=== PATIENT | female | born 1955 | race Caucasian/White ===

== ENCOUNTER → 2016-11-14 | Outpatient (CLI) | payer OTHER | LOC: BMCIMAGING 13:40 | PROVIDERS: ATTEND Internal Medicine | DX: Z13.820 Encounter for screening for osteoporosis (principal); M85.80 Other specified disorders of bone density and structure, unspecified site; Z78.0 Asymptomatic menopausal state ==

== ENCOUNTER → 2017-01-27 | Outpatient (CLI) | payer OTHER | LOC: BMCIMAGING 14:54 | PROVIDERS: ATTEND Internal Medicine | DX: R10.31 Right lower quadrant pain (principal) ==

== ENCOUNTER 2017-05-10 17:08 | Emergency (ER) | payer OTHER ==
[2017-05-10] MEDS ORDERED: NS 1,000 ML IV ONE ×3 (17:40→18:32)
[2017-05-10] MEDS ORDERED: KETOROLAC 30 MG/1 ML SDV IVP ONE (18:13)
[2017-05-10 18:21] LABS: PLATELET COUNT 243 10^3/uL (150-400)
--- NOTE | 2017-05-10 18:39 | EDPHY ---
H & P Time Seen by Provider: 05/10/17 17:34 HPI/ROS: CHIEF COMPLAINT: Back pain, vomiting, diarrhea HISTORY OF PRESENT ILLNESS: The patient is a 62 y/o female presents with left flank pain. Onset of severe left flank pain 4 hrs ago. The pain is constant and waxes and wanes. Radiates to the LLQ. Unable to get comfortable. Associated with vomiting. She denies urinary sx, fever or other associated symptoms. No prior similar sx. REVIEW OF SYSTEMS: Constitutional: No fever, no chills Eyes: No visual changes ENT: No sore throat Respiratory: No cough, no shortness of breath Cardiac: No chest pain Genitourinary: No hematuria, no dysuria Musculoskeletal: No leg pain or swelling Skin: No rash Neurological: No headache Psychiatric: No depression Past Medical/Surgical History: 1. CAD 2. Psoriasis 3. Sjogren's disease Social History: at bedside, employed, lives in [place] Smoking Status: Never smoked Physical Exam: General Appearance: Alert, appears in pain Eyes: Pupils equal and round, no conjunctival pallor or injection ENT, Mouth: Mucous membranes moist Neck: Normal inspection Respiratory: Lungs are clear to auscultation Cardiovascular: Regular rate and rhythm Back: normal inspection, no CVAT or muscular tenderness Gastrointestinal: Left lower quadrant tenderness, abdomen is soft Neurological: A&O, nonfocal exam Skin: Warm and dry, no rash Extremities: normal inspection Psychiatric: Mood and affect normal Constitutional: Initial Vital Signs Temperature (C) 36.3 C 05/10/17 17:14 Heart Rate 62 05/10/17 17:14 Respiratory Rate 24 H 05/10/17 17:14 Blood Pressure 112/86 H 05/10/17 17:14 O2 Sat (%) 99 05/10/17 17:14 O2 Delivery Mode Room Air Allergies/Adverse Reactions: Sulfa (Sulfonamide Antibiotics) Allergy (Verified 05/10/17 17:13) Home Medications: Medication Instructions Recorded Aspirin 05/10/17 Fish Oil 1,000 mg Capsule 05/10/17 Levothyroxine 05/10/17 Otezla 05/10/17 Medical Decision Making - Diagnostics Imaging Results: CT abd/pelvis: left UVJ stone with hydronephrosis ED Course/Re-evaluation: Clnical presentation c/w renal colic. stat CT abd/pelvis ordered. Toradol 15mg IV given. CT reveals a distal left ureteral calculus. Results discussed with the patient and her . She is currently pain free. Abdomen is soft and nontender. Instructions for kidney stones given. She will follow up with her primary care physician. She will return to emergency department for worsening symptoms or any concerns. She declines a prescription for hydrocodone. Differential Diagnosis: Differential diagnosis includes though it is not limited to appendicitis, cholecystitis, diverticulitis, pyelonephritis, bowel perforation, small bowel obstruction. - Data Points Laboratory Results: Laboratory Results 05/10/17 17:35 05/10/17 17:35 Medications Given: Discontinued Medications Hydrocodone Bitart/Acetaminophen (Alborn 5/325mg Prepack#6) 1 btl TAKEHOME EDNOW ONE Stop: 05/10/17 19:07 Last Admin: 05/10/17 19:19 Dose: 1 btl Sodium Chloride (Ns) 1,000 mls @ 0 mls/hr IV ONCE ONE PRN Reason: Wide Open Stop: 05/10/17 17:41 Last Admin: 05/10/17 17:42 Dose: 1,000 mls Sodium Chloride (Ns) 1,000 mls @ 0 mls/hr IV EDNOW ONE; Wide Open PRN Reason: Protocol Stop: 05/10/17 18:14 Last Admin: 05/10/17 18:20 Dose: 1,000 mls Ketorolac Tromethamine (Toradol) 15 mg IVP EDNOW ONE Stop: 05/10/17 18:14 Last Admin: 05/10/17 18:18 Dose: 15 mg Ondansetron HCl (Zofran Odt 4 Mg Prepack#2) 1 btl TAKEHOME EDNOW ONE Stop: 05/10/17 19:07 Last Admin: 05/10/17 19:19 Dose: 1 btl Departure - Departure Disposition: Home, Routine, Self-Care Clinical Impression: Kidney stone Condition: Good Instructions: Hydrocodone/Acetaminophen (By mouth), Ondansetron (By mouth), Kidney Stones (ED) Additional Instructions: 1. Take 1 tablet of Alborn every 4 hours as needed for pain. Take 1 tablet Zofran every 6 hours as needed for nausea. 2. Follow-up with your primary care provider. 3. Return to the ED for worsening of condition. Referrals: Susan Bush MD [Primary Care Provider] - As per Instructions Report Scribed for: Sneha Bartholomew Report Scribed by: Ledy William Date of Report: 05/10/17 Time of Report: 18:42 Physician Review and Approval Statement: 05/10/17 18:42 Portions of this note were transcribed by a certified medical dosimetrist. I personally performed a history, physical exam, medical decision making, and confirmed accuracy of information the transcribed note.
[2017-05-10] MEDS ORDERED: ONDANSETRON 4MG PREPACK#2 BTL TAKEHOME ONE (19:06)
[2017-05-10] MEDS ORDERED: HYDROCOD/APAP 5/325 PREPACK#6 BTL TAKEHOME ONE (19:06)
[2017-05-10 19:17] VITALS: BP 126/74; PULSE 60; RESP 15; O2SAT 98
[2017-05-10 19:30] VITALS: TEMP 98.2
== END 2017-05-10 19:29 | disposition home or self-care (01) ==
DX: N20.0 Calculus of kidney (principal); I25.10 Atherosclerotic heart disease of native coronary artery without angina pectoris; E86.9 Volume depletion, unspecified; Z79.82 Long term (current) use of aspirin
CPT/HCPCS: 96374; J1885

== ENCOUNTER → 2017-05-25 | Outpatient (CLI) | payer OTHER | LOC: BMCIMAGING 13:30 | PROVIDERS: ATTEND Internal Medicine | DX: Z12.31 Encounter for screening mammogram for malignant neoplasm of breast (principal) ==

== ENCOUNTER → 2017-09-01 | Outpatient (CLI) | payer OTHER ==
[~2017-09-01] MED LIST: IOPAMIDOL (ISOVUE-300) 100 ML BTL ONE
== END ==
LOC: FIMAGING 13:11
PROVIDERS: ATTEND Internal Medicine
DX: K76.9 Liver disease, unspecified (principal); N20.0 Calculus of kidney
CPT/HCPCS: Q9967

== ENCOUNTER 2018-01-25 17:42 | Emergency (ER) | payer OTHER ==
--- NOTE | 2018-01-25 18:32 | EDPHY ---
H & P Stated Complaint: Right flank pain Time Seen by Provider: 01/25/18 18:31 - Personal History Current Tetanus/Diphtheria Vaccine: Yes - Medical/Surgical History Hx Asthma: No Hx Chronic Respiratory Disease: No Hx Diabetes: No Hx Cardiac Disease: Yes Hx Renal Disease: No Hx Cirrhosis: No Hx Alcoholism: No Hx HIV/AIDS: No Hx Splenectomy or Spleen Trauma: No Other PMH: sjogren's syndrome, CHF, lupus, hypothyroid - Social History Smoking Status: Never smoked Constitutional: Initial Vital Signs Temperature (C) 36.4 C 01/25/18 17:44 Heart Rate 66 01/25/18 17:44 Respiratory Rate 25 H 01/25/18 17:44 Blood Pressure 151/104 H 01/25/18 17:44 O2 Sat (%) 100 01/25/18 17:44 O2 Delivery Mode Room Air Allergies/Adverse Reactions: Sulfa (Sulfonamide Antibiotics) Allergy (Verified 01/25/18 17:45) Home Medications: Medication Instructions Recorded Aspirin 05/10/17 Fish Oil 1,000 mg Capsule 05/10/17 Levothyroxine 05/10/17 Otezla 05/10/17 HYDROcodone/APAP 10/325 [Mammoth 1 - 2 each PO Q4-6PRN PRN #20 tab 01/25/18 10/325] Ondansetron Odt [Zofran Odt 4 mg 4 mg PO Q4 PRN #10 tab 01/25/18 (RX)] Tamsulosin HCl [Flomax] 0.4 mg PO DAILY #10 capsule 01/25/18 Medical Decision Making - Diagnostics Imaging: Discussed imaging studies w/ call center recruiter Radiologist ED Course/Re-evaluation: CHIEF COMPLAINT: Right flank pain HISTORY OF PRESENT ILLNESS: 63-year-old female who a few hours ago developed severe right flank pain radiating to her right groin. She had a history kidney stones in the past and this feels exactly the same. Her prior kidney stones on the left side. She is nauseated and vomited in triage. She denies any fevers or chills. She denies any symptoms before this came on very suddenly. She is writhing around on the bed and she cannot get comfortable. REVIEW OF SYSTEMS: A comprehensive 10 system review of systems is otherwise negative aside from elements mentioned in the history of present illness and medical decision making. PHYSICAL EXAM: HR, BP, O2 Sat, RR. Temp noted General Appearance: Alert, well hydrated, appropriate, and non-toxic appearing. Head: Atraumatic without scalp tenderness or obvious injury Eyes: Pupils equal, round, reactive to light and accommodation, EOMI, no trauma , no injection. Ears: Clear bilaterally, no perforation, normal landmarks Nose: Atraumatic, no rhinorrhea, clear. Throat: There is no erythema or exudates, no lesions, normal tonsils, mucus membranes moist. Neck: Supple, nontender, no lymphadenopathy. Respiratory: No retractions, no distress, no wheezes, and no accessory muscle use. Lungs are clear to auscultation bilaterally. Cardiovascular: Regular rate and rhythm, no murmurs, rubs, or gallops. Bilateral carotid, radial, dorsalis pedis, and posterior tibial pulses intact. Good capillary refill all extremities. Gastrointestinal: Patient has pain in the right flank and the right pericolic gutter and right lower quadrant but I cannot actually make the pain any worse with palpation. Abdomen is soft, non-distended, no masses, no rebound, no guarding, no peritoneal signs. Musculoskeletal: Normal active ROM of all extremities, atraumatic. Neurological: Alert, appropriate, and interactive. Nonfocal neuro exam. Skin: No rashes, good turgor, no nodules on palpation. Past medical history: Kidney stones, liver lesion being watched, immune problems Past surgical history: Noncontributory Family history: Noncontributory Social history: , employed, does not abuse tobacco drugs or alcohol DIAGNOSTICS/PROCEDURES/CRITICAL CARE TIME: Study: CT of the abdomen and pelvis without contrast Indication: Right flank pain Results: CT scan of the abdomen and pelvis was obtained. The results of the study are 3mm renal calculus in distal R UVJ. The study was read by the radiologist, Dr. Johns. I viewed the images myself on the PACS system. DIFFERENTIAL DIAGNOSIS: The differential diagnosis for the patient's flank pain included but was not limited to musculoskeletal causes, kidney stone, pyelonephritis, shingles, diverticulitis, appendicitis, and aortic aneurysm. MEDICAL DECISION MAKING: This patient has a kidney stone clinically. I am awaiting urine and blood work. Also a noncontrast CT scan. Additionally, I have given this patient 1 mg of Dilaudid and 30 mg of Ketoralac. She has also received 4 mg of Zofran and fluid she is feeling better. 19:[address] Johns, radiologist. CT shows 3mm calculus in the distal right UVJ. 19:58 Reassessed patient. Discussed imaging results. Plan to discharge home in good condition with prescription for Zofran, Mammoth, Flomax for symptom relief as well as a referral to urology. Return precautions discussed. She is comfortable with this plan. - Data Points Laboratory Results: 01/25/18 01/25/18 19:03 18:40 POC Hgb 15.6 gm/dL gm/dL (12.6-16.3) POC Hct 46 % % (38-47) POC Sodium 142 mEq/L mEq/L (135-145) POC Potassium 3.2 mEq/L L mEq/L (3.3-5.0) POC Chloride 103 mEq/L mEq/L (97-110) POC BUN 17 mg/dL mg/dL (7-23) POC Creatinine 1.1 mg/dL H mg/dL (0.6-1.0) POC Glucose 111 mg/dL H mg/dL (70-100) Urine Color YELLOW Urine Appearance HAZY Urine pH 5.0 (5.0-7.5) Ur Specific [place] 1.021 (1.002-1.030) Urine Protein NEGATIVE (NEGATIVE) Urine Ketones NEGATIVE (NEGATIVE) Urine Blood 3+ H (NEGATIVE) Urine Nitrate NEGATIVE (NEGATIVE) Urine Bilirubin NEGATIVE (NEGATIVE) Urine Urobilinogen NEGATIVE EU EU (0.2-1.0) Ur Leukocyte Esterase NEGATIVE (NEGATIVE) Urine RBC 50-182 /hpf H /hpf (0-3) Urine WBC 1-3 /hpf /hpf (0-3) Ur Epithelial Cells TRACE /lpf /lpf (NONE-1+) Amorphous Sediment PRESENT /hpf /hpf (NONE-1+) Urine Mucus 1+ /lpf /lpf (NONE-1+) Urine Glucose NEGATIVE (NEGATIVE) Medications Given: Discontinued Medications Hydromorphone HCl (Dilaudid) 1 mg IVP EDNOW ONE Stop: 01/25/18 18:41 Last Admin: 01/25/18 18:48 Dose: 1 mg Sodium Chloride (Ns) 1,000 mls @ 0 mls/hr IV EDNOW ONE; Wide Open PRN Reason: Protocol Stop: 01/25/18 18:42 Last Admin: 01/25/18 18:50 Dose: 1,000 mls Ketorolac Tromethamine (Toradol) 30 mg IVP EDNOW ONE Stop: 01/25/18 18:51 Last Admin: 01/25/18 18:51 Dose: 30 mg Ondansetron HCl (Zofran) 4 mg IVP EDNOW ONE Stop: 01/25/18 18:50 Last Admin: 01/25/18 18:54 Dose: 4 mg Point of Care Test Results: Chemistry 01/25/18 19:03 POC Sodium 142 mEq/L mEq/L (135-145) POC Potassium 3.2 mEq/L L mEq/L (3.3-5.0) POC Chloride 103 mEq/L mEq/L (97-110) POC BUN 17 mg/dL mg/dL (7-23) POC Creatinine 1.1 mg/dL H mg/dL (0.6-1.0) POC Glucose 111 mg/dL H mg/dL (70-100) ISTAT H&H 01/25/18 19:03 POC Hgb 15.6 gm/dL gm/dL (12.6-16.3) POC Hct 46 % % (38-47) Departure - Departure Disposition: Home, Routine, Self-Care Clinical Impression: Right kidney stone Condition: Good Instructions: Kidney Stones (ED) Additional Instructions: Follow up with your urologist within one week. Take Zofran as prescribed as needed for nausea. Take Flomax as prescribed. Take Mammoth as prescribed as needed for severe pain. Return to the emergency department for fever, severe pain, inability to urinate or other concerns. Adult Pain & Fever Control: We recommend Acetaminophen (Tylenol) and Ibuprofen (Motrin,Advil) for pain and fever control. When fever is high or pain severe, both drugs can be used at the same time, but at different intervals. Please note the time differences. Your dose is: Acetaminophen 650mg every 4 to 6 hours Ibuprofen 600mg every 6-8 hours with food Note: do not take Acetaminophen with Hydrocodone (Vicodin, Lortab) or Oxycodone (Percocet). These medications also contain Acetaminophen. No more than 3000mg of Acetaminophen should be taken in 24 hours (for an adult). Referrals: Susan Bush MD [Primary Care Provider] - As per Instructions Opal London MD [Medical Doctor] - As per Instructions Prescriptions: HYDROcodone/APAP [Mammoth ] 1 - 2 each PO Q4-6PRN PRN #20 tab PRN Reason: Pain, Moderate Ondansetron Odt [Zofran Odt 4 mg (RX)] 4 mg PO Q4 PRN #10 tab PRN Reason: Nausea/Vomiting, Use 1st Tamsulosin HCl [Flomax] 0.4 mg PO DAILY #10 capsule Report Scribed for: Gt Christianson Report Scribed by: Latisha Banegas Date of Report: 01/25/18 Time of Report: 19:57
[2018-01-25] MEDS ORDERED: HYDROmorphONE/DILAUDID 2 MG/ML INJ IVP ONE (18:40)
[2018-01-25] MEDS ORDERED: NS 1,000 ML IV ONE (18:41)
[2018-01-25] MEDS ORDERED: ONDANSETRON 4 MG/2 ML VIAL IVP ONE (18:49)
[2018-01-25] MEDS ORDERED: KETOROLAC 30 MG/1 ML SDV IVP ONE (18:50)
[2018-01-25] MEDS ORDERED: TAMSULOSIN HCL 0.4 MG CAP PO ONE (19:52)
[2018-01-25] MEDS ORDERED: HYDROCOD/APAP 5/325 PREPACK#6 BTL TAKEHOME ONE (20:01)
[2018-01-25] MEDS ORDERED: ONDANSETRON 4MG PREPACK#2 BTL TAKEHOME ONE (20:01)
[2018-01-25 20:45] VITALS: BP 138/70
== END 2018-01-25 20:45 | disposition home or self-care (01) ==
DX: N20.1 Calculus of ureter (principal); N20.0 Calculus of kidney; E86.9 Volume depletion, unspecified; Z87.442 Personal history of urinary calculi
CPT/HCPCS: 82435-PO; 82565-PO; 82947-PO; 84132-PO; 84295-PO; 84520-PO; 85014-PO; 96374; J1170; J1885; J2405

== ENCOUNTER → 2018-05-07 | Outpatient (CLI) | payer OTHER | LOC: BMCIMAGING 16:10 | PROVIDERS: ATTEND Internal Medicine | DX: M41.86 Other forms of scoliosis, lumbar region (principal); M51.36 Other intervertebral disc degeneration, lumbar region; M51.37 Other intervertebral disc degeneration, lumbosacral region; M47.26 Other spondylosis with radiculopathy, lumbar region ==

== ENCOUNTER → 2018-05-29 | Outpatient (CLI) | payer OTHER | LOC: BMCIMAGING 15:02 | PROVIDERS: ATTEND Internal Medicine | DX: Z12.31 Encounter for screening mammogram for malignant neoplasm of breast (principal) ==

== ENCOUNTER → 2018-08-01 | Outpatient (CLI) | payer OTHER | LOC: BMCIMAGING 10:42 | PROVIDERS: ATTEND Internal Medicine | DX: Z01.811 Encounter for preprocedural respiratory examination (principal) ==

== ENCOUNTER 2018-09-04 05:46 | Inpatient (IN) | payer OTHER ==
[2018-09-04] MEDS ORDERED: ACETAMINOPHEN 500 MG TAB PO ONE (06:04)
[2018-09-04] MEDS ORDERED: ceFAZolin 2 GM/DEXTROSE 100 ML IV ONE (06:04)
[2018-09-04] MEDS ORDERED: morphINE PF 0.2 MG in SYRINGE INTRATHECAL 1 SYR IT ONE (06:04)
[2018-09-04] MEDS ORDERED: GABAPENTIN 300 MG CAP PO ONE (06:04)
[2018-09-04] MEDS ORDERED: LR 1,000 ML IV ONE (06:06)
--- NOTE | 2018-09-04 06:53 | PDHPUP ---
History & Physical Update H&P update statement: This history and physical update is based on an assessment of the patient which was completed after admission or registration (within 24 hours), but prior to the surgery/procedure. H&P update: H&P reviewed & patient examined, no change in patient's condition since H&P completed (Consents signed and site marked. All questions answered.)
[2018-09-04] MEDS ORDERED: SURGIFLO MATRIX KIT WITH THROMBIN 8 ML TP ONE (06:56)
[2018-09-04] MEDS ORDERED: BUPIVACAINE/EPI 0.25% 30 ML SDV ONE (06:56)
[2018-09-04] MEDS ORDERED: THROMBIN (BOVINE) 20,000 UNIT VIAL TP ONE (06:56)
[2018-09-04] MEDS ORDERED: BACITRACIN 50,000 UNITS/10 ML SYR IRR ONE (06:56)
[2018-09-04] MEDS ORDERED: CHLORHEXIDINE GLUC HIBICLENS 118 ML BTL TP ONE (06:56)
[2018-09-04] MEDS ORDERED: MIDAZOLAM 2 MG/2 ML VIAL IVP ONE (07:02)
--- NOTE | 2018-09-04 07:02 | PDANEPAE ---
ANE History of Present Illness L4-S1 TLIF Lum Calzada for stenosis of the lumbar spine with radiculopathy ANE Past Medical History - Cardiovascular History Hx Hypertension: No Hx Arrhythmias: No Hx Chest Pain: No Hx Coronary Artery / Peripheral Vascular Disease: Yes Hx CHF / Valvular Disease: No Hx Palpitations: No - Pulmonary History Hx COPD: No Hx Asthma/Reactive Airway Disease: No Hx Recent Upper Respiratory Infection: No Hx Oxygen in Use at Home: No Hx Sleep Apnea: Yes Sleep Apnea Screening Result - Last Documented: Positive - Neurologic History Hx Cerebrovascular Accident: No Hx Seizures: No Hx Dementia: No - Endocrine History Hx Diabetes: No Endocrine History Comment: HYPOTHYROID - Renal History Hx Renal Disorders: Yes Renal History Comment: KIDNEY STONES PASSED ON HER OWN - Liver History Hx Hepatic Disorders: Yes Hepatic History Comment: SPOT ON LIVER - Neurological & Psychiatric Hx Hx Neurological and Psychiatric Disorders: No - Cancer History Hx Cancer: No - Congenital Disorder History Hx Congenital Disorders: No - GI History Hx Gastrointestinal Disorders: Yes Gastrointestinal History Comment: FOOD INTOLERANCES. SJOGRENS - Other Health History Other Health History: PSORIASIS. SORIATIC ARTHRITIS. SJOGRENS. LUPUS ANTIBODIES. RESTLESS LEG. SCOLOSIS - Chronic Pain History Chronic Pain: Yes (LOWER LUMBAR,SCIATICA) - Surgical History Prior Surgeries: LT BUNIONECTOMY 2016 ANE Review of Systems Review of Systems: - Exercise capacity METS (RN): 4 METS ANE Patient History - Allergies Allergies/Adverse Reactions: gluten Allergy (Verified 08/21/18 16:02) Diarrhea Milk Containing Products [dairy] Allergy (Verified 08/21/18 16:02) Diarrhea soy Allergy (Verified 08/21/18 16:02) Diarrhea Sulfa (Sulfonamide Antibiotics) Allergy (Verified 07/11/18 11:31) Swelling/neck,face,throat - Home Medications Home Medications: Apremilast [Otezla] 30 mg PO BID 07/11/18 [Last Taken 08/31/18] Aspirin [Aspirin 81mg (*)] 81 mg PO DAILY 07/11/18 [Last Taken 2 Weeks Ago ~07/10] Cholecalciferol Vit D3 [Vitamin D3 (*)] 1,000 units PO DAILY 07/11/18 [Last Taken 1 Week Ago ~08/28/18] Cyanocobalamin [Vitamin B12 (*)] 1,000 mcg PO DAILY 07/11/18 [Last Taken 1 Week Ago ~08/28/18] Evolocumab [Repatha Sureclick] 140 mg SQ Q14D 07/11/18 [Last Taken 2 Weeks Ago ~ 08/21/18] Levothyroxine [Synthroid 88 mcg (*)] 88 mcg PO DAILY06 08/20/18 [Last Taken ] - NPO status NPO Since - Liquids (Date): 09/03/18 NPO Since - Liquids (Time): 19:30 NPO Since - Solids (Date): 09/03/18 NPO Since - Solids (Time): 19:30 - Smoking Hx Smoking Status: Never smoked - Family Anes Hx Family Hx Anesthesia Complications: NEG ANE Labs/Vital Signs - Vital Signs Blood Pressure: 149/83 Heart Rate: 80 Respiratory Rate: 16 O2 Sat (%): 95 Height: 172.09 cm Weight: 68.039 kg ANE Physical Exam - Airway Neck exam: FROM Mallampati Score: Class 2 Mouth exam: normal dental/mouth exam - Pulmonary Pulmonary: no respiratory distress, no rales or rhonchi - Cardiovascular Cardiovascular: regular rate and rhythym, no murmur, rub, or gallop - ASA Status ASA Status: III ANE Anesthesia Plan Anesthesia Plan: general endotracheal anesthesia Total IV Anesthesia: Yes
[2018-09-04] MEDS ORDERED: MIDAZOLAM 2 MG/2 ML VIAL ONE (07:03)
[2018-09-04] MEDS ORDERED: PROPOFOL 200 MG/20 ML VIAL ONE (07:06)
[2018-09-04] MEDS ORDERED: DEXAMETHASONE 4 MG/ML VIAL ONE (07:06)
[2018-09-04] MEDS ORDERED: PHENYLEPHRINE HCL 100 MCG/ML SYR ONE (07:06)
[2018-09-04] MEDS ORDERED: PROPOFOL/EMULSION 500 MG/50 ML BOTTLE IV ONE ×4 (07:06→08:25)
[2018-09-04] MEDS ORDERED: ONDANSETRON 4 MG/2 ML VIAL ONE (07:06)
[2018-09-04] MEDS ORDERED: REMIFENTANIL HCL 1 MG VIAL ONE ×2 (07:06)
[2018-09-04] MEDS ORDERED: LIDOCAINE 2% 100 MG/5 ML SYR ONE (07:06)
[2018-09-04] MEDS ORDERED: ROCURONIUM 50 MG/5 ML VIAL ONE (07:06)
[2018-09-04] MEDS ORDERED: PHENYLEPHRINE 10 MG/ML SDV ONE (07:06)
[2018-09-04] MEDS ORDERED: diphenhydrAMINE 25 MG CAP PO PRN (07:38)
[2018-09-04] MEDS ORDERED: ONDANSETRON DISINTEGRATING 4 MG TAB PO PRN (07:38)
[2018-09-04] MEDS ORDERED: LACTULOSE 20 GM/30 ML UDCUP PO PRN (07:38)
[2018-09-04] MEDS ORDERED: POLYETHYLENE GLYCOL 3350 17 GM PKT PO PRN (07:38)
[2018-09-04] MEDS ORDERED: MAGNESIUM HYDROXIDE 30 ML UDCUP PO PRN (07:38)
[2018-09-04] MEDS ORDERED: BISACODYL 10 MG SUPP PR PRN (07:38)
[2018-09-04] MEDS ORDERED: ONDANSETRON 4 MG/2 ML VIAL IVP PRN (07:38)
[2018-09-04] MEDS ORDERED: NS 1,000 ML IV SCH (07:45)
--- NOTE | 2018-09-04 09:34 | PDMN ---
Medical Necessity Medical necessity: [facility] [place] S820 Lumbar Fusion, 2 days: 63 yo s/p L4/L5/S1 TLIF Lum Calzada, L4-S1 post fusion w/ TRINO munoz IP only
[2018-09-04] MEDS ORDERED: PHENYLEPHRINE HCL 100 MCG/ML SYR IVP PRN (10:48)
[2018-09-04] MEDS ORDERED: DIAZEPAM 5 MG/ML 1 ML SYR IVP PRN (10:48)
[2018-09-04] MEDS ORDERED: NALOXONE HCL 0.4 MG/ML INJ IVP PRN ×2 (10:48→12:09)
[2018-09-04] MEDS ORDERED: HYDROmorphONE/DILAUDID 1 MG/ML INJ IVP PRN (10:48)
[2018-09-04] MEDS ORDERED: MEPERIDINE 25 MG/0.5 ML AMP IVP PRN (10:48)
[2018-09-04] MEDS ORDERED: fentaNYL 100 MCG/2 ML INJ IVP PRN (10:48)
[2018-09-04] MEDS ORDERED: HYDROmorphONE/DILAUDID 2 MG/ML INJ ONE (10:59)
--- NOTE | 2018-09-04 11:37 | POSTANESTH ---
Post Anesthetic Evaluation Cardiovascular Status: Normal, Stable, Tx Over/Under Hydration Level of Consciousness/Mental Status: Can Participate in Eval, Moderately Sleepy Pain Control: Adequate, Prn Tx Ordered Nausea/Vomiting Control: Adequate, Prn Tx Ordered Complications Possibly Related to Anesthesia: None Noted
--- NOTE | 2018-09-04 12:04 | POSTOPPROG ---
Post Op Note Date of Operation: 09/04/18 Surgeon: Keagan Baldwin Supervisor Tree Trimming: Keke Frost NP Anesthesiologist: Dr Cruz Anesthesia: GET(General Endotracheal) Pre-op Diagnosis: Lumbar stenosis Post-op Diagnosis: Lumbar stenosis Procedure: L4-S1 laminectomy with left L4-S1 TLIF, L4-S1 PSF Inf/Abcess present in the surg proc area at time of surgery?: No Depth: Deep Incisional (Fascial) EBL: 100-500 Total fluids administered: see anesthesia Complications: none Bowel Protocol: Yes Clean Closure Performed: N/A Drains: Mil Wang Date of Surgery: 09/04/18 Post Op Day: 0 Assessment/Plan: Assessment: 63 yr old F s/p L4-S1 laminectomy with left L4-S1 TLIF, PSF L4-S1 Plan: -Admit Med surg -Pain management, patient received IT Duramorph -PT/OT -KASEY to bulb suction -Brace on when out of bed -Post op xrays in am -Please call neurosurgery with questions or concerns Subjective: waking up in pacu Objective: waking up in pacu MAEx4 5/5 BLE Incision/dressing CDI KASEY patent Appropriate Neuro Check Frequency Ordered: Yes
[2018-09-04] MEDS: ACETAMINOPHEN 500 MG TAB PO SCH ×2 (13:03→22:01)
[2018-09-04] MEDS: GABAPENTIN 300 MG CAP PO SCH ×2 (13:03→22:01)
[2018-09-04] MEDS: METHOCARBAMOL 750 MG TAB PO PRN ×2 (14:03→20:02)
[2018-09-04] MEDS: oxyCODONE IR 5 MG TAB PO PRN ×2 (14:03→22:01)
[2018-09-04] MEDS: FAMOTIDINE 20 MG TAB PO SCH ×2 (14:35→20:02)
[2018-09-04] MEDS: SENNOSIDES/DOCUSATE SODIUM TAB PO SCH ×2 (14:35→20:02)
[2018-09-04] MEDS: ceFAZolin 2 GM/DEXTROSE 100 ML IV SCH ×2 (15:16→22:01)
--- NOTE | 2018-09-04 16:18 | GOP ---
[f rep st] OPERATIVE REPORT DATE OF OPERATION: 09/04/2018 SURGEON: Keagan Baldwin MD NATIONAL SALES TRAINER: Zakiya Frost NP. ANESTHESIA: General. PREOPERATIVE DIAGNOSIS: 1. L4 through S1 lumbar spondylosis with severe spinal stenosis L4-L5 and L5- S1. 2. Left lower extremity radiculopathy. 3. Claudication. 4. Treatment refractory to nonoperative interventions. POSTOPERATIVE DIAGNOSIS: 1. L4 through S1 lumbar spondylosis with severe spinal stenosis L4-L5 and L5- S1. 2. Left lower extremity radiculopathy. 3. Claudication. 4. Treatment refractory to nonoperative interventions. PROCEDURE PERFORMED: 1. Posterior arthrodesis with approach to L4, L5, and S1. 2. Posterolateral fusion with bilateral pedicle screw placement at L4, L5, and S1 from the ABL [employer]ms[employer] 4.75 system. 3. Decompressive laminectomy with bilateral medial facetectomies, L4-L5 and L5- S1. 4. Left-sided L4-5 facetectomy and transforaminal lumbar interbody fusion with a 9 x 28 mm titanium polyetheretherketone elevate cage filled with morselized autograft and allograft. 5. Left-sided L5-S1 facetectomy and transforaminal lumbar interbody fusion with a 7 x 28 mm titanium polyetheretherketone elevate cage filled with morselized autograft and allograft. 6. Posterolateral fusion on the right L4 through S1 with morselized autograft and allograft. 7. Use of intraoperative 3D Stealth navigation. 8. Use of intraoperative fluoroscopy, less than 1 hour physician time. 9. Use of neuromonitoring. 10. Use of the operating microscope. 11. Injected preservative-free intrathecal narcotics. FINDINGS: per imaging SPECIMENS: None. ESTIMATED BLOOD LOSS: 150 mL. INDICATIONS: The patient is a very pleasant 63-year-old woman who presented to our office with worsening low back pain, bilateral lower extremity claudication worse left lower extremity radiculopathy. She had evidence of severe spinal stenosis at L4-5 and less so at L5-S1 with moderate stenosis L2-L3 and L3-L4. After discussion of the risks, benefits, and treatment alternatives and after failing nonoperative intervention, we decided to proceed forth with surgery as described above. DESCRIPTION OF PROCEDURE: The patient was brought to the operating theater and underwent general endotracheal anesthesia without complications. She had Venodynes, LIZANDRO hose, and the appropriate lines placed by Anesthesia. She was flipped prone onto the Mil table. All bony processes were inspected and padded. The lower lumbar region was then prepped and draped in the usual sterile surgical fashion. A time-out was completed per protocol. The patient received antibiotics within 1 hour of incision. Using lateral fluoroscopy and a spinal needle we picked our entry point to the L4 through S1 levels. This was marked in the midline. The incision was infiltrated with Marcaine with epinephrine. The incision was taken down initially with the scalpel blade. Using monopolar, the incision was taken down to the midline through the lumbodorsal fascia, and subperiosteal dissection carried out to the transverse processes of L4, L5, and S1 bilaterally. Care was taken to preserve the bilateral L3-4 facet joint. Deep retractors were placed to maintain our exposure. We confirmed our level using lateral fluoroscopy. We attached the 3D Stealth navigation clamp to the spinous process of L5 and completed a 3D Stealth navigation spin. Using 3D navigation we picked our airplane pilot photogrammetry holes for the bilateral pedicle screws at L4, L5, S1. All holes were manually palpated with no evidence of any cortical breaches. We then tapped and placed 6.5 x 58 mm screws bilaterally at L4, L5, left side S1 and 6.5 x 45 mm screw on the right S1 from [employer] 4.75 system. Another 3D Stealth navigation spin demonstrated good position of the hardware. The microscope was brought onto the field to assist with microscopic dissection and to maintain illumination and magnification. Using a combination of the bur tip on the drill bit, Kerrison punches and Leksell rongeur, we completed a decompressive laminectomy with bilateral medial facetectomies at L4-L5 and L5- S1. We retracted the thecal sac medially on the right side at L4-5 and completed a central and contralateral diskectomy. We then completed an aggressive facetectomy on the left side L4-L5 and L5-S1. We moved to the left side at L4-5 where we distracted the disk space and completed a left-sided L4-5 diskectomy. We prepared the cartilaginous endplates and measured the interbody space. We placed 9 x 28 mm titanium PEEK elevate cage filled with morselized autograft and allograft anteriorly and towards the midline. We packed additional morcellized autograft in the disk space for the interbody fusion. We let down distraction and moved down to L5-S1 where we distracted the disc space and completed a left-sided L5-S1 diskectomy. We prepared the cartilaginous endplates and measured the interbody space. We placed a 7 x 28 titanium PEEK elevate cage filled with morselized autograft and allograft anteriorly and towards the midline. We packed additional morcellized autograft in the disk space for the interbody fusion. We let down distraction and completed right-sided L4-5 and L5-S1 foraminotomies. At this point, we placed 2 lordotic rods in the heads of the screws between L4 and S1 and secured them down with cap screws, which were then tightened per track repairer helper's setting. We decorticated the bone on the right side between L4 and S1. The wound was irrigated copiously with bacitracin irrigation, and we placed morselized autograft and allograft on the right side between L4-S1 for postoperative fusion. We injected preservative-free intrathecal narcotics. A drain was placed in the subfascial space and the wound then closed in multiple layers including Vicryl sutures to deep layers and Dermabond for the skin. The patient's wounds were dressed sterilely. She was flipped supine onto the transfer cart. She was awakened, extubated, and taken to the recovery room in stable condition. There were no complications and no noted changes on neuromonitoring throughout the procedure. COMPLICATIONS: None. COMPLICATIONS: None. /[id number]/MODL MTDD
[2018-09-05 05:05] LABS: PLATELET COUNT 190 10^3/uL (150-400)
[2018-09-05] MEDS: GABAPENTIN 300 MG CAP PO SCH ×3 (06:12→22:37)
[2018-09-05] MEDS: LEVOTHYROXINE 88 MCG TAB PO SCH (06:12)
[2018-09-05] MEDS: oxyCODONE IR 5 MG TAB PO PRN ×3 (06:40→22:40)
[2018-09-05] MEDS: ACETAMINOPHEN 500 MG TAB PO SCH ×3 (06:41→22:37)
--- NOTE | 2018-09-05 08:28 | SOAPPROG ---
SOAP Progress Note Assessment/Plan: Assessment: 63 yo F POD #1 L4/5, L5/S1 TLIF Plan: neuro: stable and doing well overall :) PT/OT lumbar x-rays today jaspal x 1 scd/martita/lovenox for dvt prophylaxis please call with neuro changes discussed with Dr Osborn 09/05/18 08:25 Subjective: + back pain, no leg pain, no weakness. Objective: Vital Signs Temp Pulse Resp BP Pulse Ox 37.1 C 52 L 16 95/48 L 100 09/05/18 07:46 09/05/18 07:46 09/05/18 07:46 09/05/18 07:46 09/05/18 07:46 Laboratory Results 09/05/18 04:29 09/05/18 04:29 09/04/18 09/05/18 09/06/18 05:59 05:59 05:59 Intake Total 1160 Output Total 1170 745 Balance -10 -745 AAOx4, +FC PERRL, EOMI, no facial droop 5/5 + light touch C/D/I ICD10 Worksheet Patient Problems: Problems Problem Status Onset Fusion of spine of lumbar region Acute - ICD10 Problem Qualifiers (1) Fusion of spine of lumbar region
[2018-09-05] MEDS: ENOXAPARIN 40 MG/0.4 ML SYR SC SCH (09:46)
[2018-09-05] MEDS: SENNOSIDES/DOCUSATE SODIUM TAB PO SCH ×2 (09:46→20:12)
[2018-09-05] MEDS: FAMOTIDINE 20 MG TAB PO SCH ×2 (09:46→20:13)
[2018-09-05] MEDS ORDERED: NS 500 ML IV ONE (10:30)
[2018-09-05] MEDS: METHOCARBAMOL 750 MG TAB PO PRN ×2 (10:43→22:40)
--- NOTE | 2018-09-05 16:52 | ASMTCMCOM ---
CM Note CM Note Notes: Pt had planned surgery, resides with spouse. OT rec home, PT rec [facility]. Pt chooses [facility], [place] alerted. D/c plan of care: Home with [facility] Date Signed: 09/05/2018 04:52 PM Electronically Signed By:SABA Ly
[2018-09-06] MEDS: GABAPENTIN 300 MG CAP PO SCH ×3 (06:26→23:36)
[2018-09-06] MEDS: LEVOTHYROXINE 88 MCG TAB PO SCH (06:27)
[2018-09-06] MEDS: ACETAMINOPHEN 500 MG TAB PO SCH ×3 (06:54→23:02)
--- NOTE | 2018-09-06 08:29 | NEUSURGPN ---
Date of Surgery: 09/04/18 Post Op Day: 2 Assessment/Plan: Assessment: 63 yo F POD #2 L4/5, L5/S1 TLIF Plan: neuro: stable, had syncopal episode last night. Will adjust pain medication today, trial with Tramadol PT/OT Patient has new localized left calf pain this am, will get US LLE to r/o DVT lumbar x-rays show stable hardware placement Remove KASEY scd/martita/lovenox for dvt prophylaxis please call with neuro changes Patient was seen by Dr Baldwin as well Subjective: doing better this am, left calf pain Objective: AxOx4 MAEx4 5/5 BUE, BLE Dressing/incision CDI KASEY patent Neuro Check Frequency: per routine Urinary Catheter in Place: No Catheter Insertion Date: 09/04/18 - Physician Patient Seen by : D[facility] Neurosurgery Physical Exam - Vitals, I&O, Labs I and O 09/05/18 09/06/18 09/07/18 05:59 05:59 05:59 Intake Total 1160 1180 Output Total 1170 3635 1400 Balance -10 -3858 -1400 Weight 68.039 kg Intake: Oral (ml) 1180 IV Intake (ml) 1160 Output: Urine (ml) 725 3475 1400 Bedside Commode 500 Catheter 725 675 Toilet 2800 900 Estimated Blood Loss (ml) 150 KASEY Drain Output (ml) 295 160 #1 Posterior Back 295 160 Other: Intake Quantity Yes Sufficient Number of Voids Toilet 1 Vital Signs Temp Pulse Resp BP Pulse Ox 37.2 C 65 14 97/43 L 97 09/06/18 07:35 09/06/18 07:35 09/06/18 07:35 09/06/18 08:24 09/06/18 07:35 Laboratory Results 09/05/18 04:29 09/05/18 04:29 ICD10 Worksheet Patient Problems: Problems Problem Status Onset Fusion of spine of lumbar region Acute
[2018-09-06] MEDS: traMADol 50 MG TAB PO PRN ×3 (09:09→23:02)
[2018-09-06] MEDS: FAMOTIDINE 20 MG TAB PO SCH ×2 (09:09→21:29)
[2018-09-06] MEDS: SENNOSIDES/DOCUSATE SODIUM TAB PO SCH ×2 (09:09→21:29)
[2018-09-06] MEDS: ENOXAPARIN 40 MG/0.4 ML SYR SC SCH (09:10)
[2018-09-06] MEDS ORDERED: NS 500 ML IV ONE (11:38)
[2018-09-06] MEDS ORDERED: NS BOLUS 500 ML (Wide open) IV ONE (19:00)
[2018-09-07] MEDS: METHOCARBAMOL 750 MG TAB PO PRN (01:54)
[2018-09-07] MEDS: GABAPENTIN 300 MG CAP PO SCH ×2 (03:04→10:12)
[2018-09-07] MEDS: LEVOTHYROXINE 88 MCG TAB PO SCH (05:54)
[2018-09-07] MEDS: traMADol 50 MG TAB PO PRN ×3 (05:54→21:08)
[2018-09-07] MEDS: ACETAMINOPHEN 500 MG TAB PO SCH ×3 (06:51→21:06)
--- NOTE | 2018-09-07 08:13 | SOAPPROG ---
SOAP Progress Note Assessment/Plan: Assessment/Plan: Assessment: 63 yo F POD #4 L4/5, L5/S1 TLIF. lumbar x-rays show stable hardware placement neuro: stable, had syncopal episode last night and again this AM. Plan: repeat CBC/Chem 7 today Continue Tramadol. Pain control PT/OT Will decrease Gabapentin from 300 TID to 100 TID scd/martita/lovenox for dvt prophylaxis please call with neuro changes Subjective: Lying bed. Passed out again this A.M. Ongoing pain in buttocks with even slight movement. Objective: AxOx4 MAEx4 5/5 BUE, BLE Dressing/incision CDI Objective: Vital Signs Temp Pulse Resp BP Pulse Ox 36.5 C 60 16 113/74 97 09/07/18 07:18 09/07/18 07:18 09/07/18 07:18 09/07/18 07:18 09/07/18 07:18 Laboratory Results 09/06/18 12:30 09/05/18 04:29 09/06/18 09/07/18 09/08/18 05:59 05:59 05:59 Intake Total 1180 1150 400 Output Total 3635 3400 200 Balance -2455 -2250 200 ICD10 Worksheet Patient Problems: Problems Problem Status Onset Fusion of spine of lumbar region Acute
[2018-09-07] MEDS: ENOXAPARIN 40 MG/0.4 ML SYR SC SCH (10:06)
[2018-09-07] MEDS: SENNOSIDES/DOCUSATE SODIUM TAB PO SCH ×2 (10:12→21:08)
[2018-09-07] MEDS: FAMOTIDINE 20 MG TAB PO SCH ×2 (10:13→21:08)
[2018-09-07] MEDS ORDERED: NS 1,000 ML IV SCH (11:45)
--- NOTE | 2018-09-07 12:22 | GCON ---
[f rep st] CONSULTATION DATE OF CONSULTATION: 09/07/2018 REFERRING PHYSICIAN: Dr. Baldwin REASON FOR CONSULTATION: Recurrent syncope. HISTORY OF PRESENT ILLNESS: A pleasant 63-year-old female with chronic lumbar back pain, hypothyroidism, Sjogren's, psoriatic arthritis, who underwent TLIF by Dr. Baldwin. On the evening of 09/05, she was in the bathroom and stood up, felt woozy, and pulled the cord and was found slumped down. At that time, she felt clammy and everything was blacking out. Denied chest pain or palpitations. Second episode occurred this morning when standing up going to the restroom. Again, clammy, blacking out, but did not lose consciousness. Again, no other prodromal symptoms. She was febrile to 38.3 last night. She had 1 episode of emesis this morning. Denies cough, sweats, diarrhea, or dysuria. Chronically urinates frequently. Her last oxycodone was 09/05. She reports having a normal stress test at [facility] as a preop evaluation. I do not have access to these records currently. She is currently chest pain free. No shortness of breath. She had positive orthostatics blood pressures this morning. REVIEW OF SYSTEMS: I completed a 10-point review of systems, negative except as noted in HPI. PAST MEDICAL HISTORY: 1. Lumbar back pain. 2. Kidney stones. 3. Hypothyroidism. 4. Shingles. 5. Positive lupus antibodies. 6. Psoriasis. 7. Psoriatic arthritis. 8. Sjogren's. 9. Restless legs syndrome. 10. Sleep apnea, on CPAP. 11. Known heart murmur. 12 CAD PAST SURGICAL HISTORY: Left bunionectomy. FAMILY HISTORY: Dad, [place] at 72. Paternal uncles with heart bypass surgeries. Mother was healthy, at age 92 recently. Brother with non-Hodgkin's, colon cancer, kidney mass. ALLERGIES: 1. Gluten. 2. Milk. 3. Soy. 4. Sulfa. HOME MEDICATIONS: 1. Levothyroxine 88 mcg daily. 2. Repatha 140 mg subcu every 14 days. 3. Vitamin B12. 4. Vitamin D3. 5. Aspirin 81. 6. Otezla. SH - Lives in [place] with -no illicits or tobacco PHYSICAL EXAMINATION: VITAL SIGNS: Temperature 38.3 last night, blood pressure sitting 120/68 with heart rate in the 90s, standing 92/60, supine 128/ 76. GENERAL: No acute distress. HEENT: Dry mucous membranes. CV: 2/6 murmur, right upper sternal border. Regular rate and rhythm. LUNGS: Clear. ABDOMEN: Soft, nontender, nondistended. Positive bowel sounds. : No Rojas. MUSCULOSKELETAL: Moving all 4 extremities. NEURO: 2 through 12 intact. PSYCH: Alert and oriented x3. LABORATORY DATA: WBC 9, hemoglobin 11, hematocrit 35, platelets 163. Sodium 137, potassium 4, chloride 104, carbon dioxide 29, creatinine 0.8, glucose 125, calcium 8.4. EKG: (personally-reviewed) ST-flattening V4-6 (flattening seen on prior V2-3) ASSESSMENT AND PLAN: 1. Syncope: multifactorial with opioids and volume depletion. Positive orthostatics. Denies prodromal chest pain or shortness of breath. Nuclear exercise test 08/09/18 negative for ischemia, EF >70%. H/H stable. Febrile last night, but denies infectious symptoms. Check blood cultures. IV fluids today. Decrease Tramadol, stop Benadryl. 2. Lumbar back pain: Status post L4-5, L5-S1 transforaminal lumbar interbody fusion. Treatment per Neurosurgery. 3. Hypothyroid: Synthroid. 4. Psoriatic arthritis: Otezla. 5. Diet: Regular. 6. Deep vein thrombosis prophylaxis: Lovenox. Thank you for this consultation. We will follow along. Please call if any questions. /[id number]/MODL MTDD
--- NOTE | 2018-09-07 12:55 | ASMTCMCOM ---
CM Note CM Note Notes: CM discussed with Racheal OROSCO, currently continuing monitoring and experiencing nausea and syncope. Possibly discharge in 1-2 days. Plan continues to be D/C with [facility] when medically stable. CM to follow. D/C Plan: [facility] Date Signed: 09/07/2018 12:54 PM Electronically Signed By:Ariana Rodriguez
[2018-09-07] MEDS: GABAPENTIN 100 MG CAP PO SCH ×2 (14:08→21:07)
[2018-09-08] MEDS: GABAPENTIN 100 MG CAP PO SCH ×3 (00:23→21:17)
[2018-09-08] MEDS: LEVOTHYROXINE 88 MCG TAB PO SCH (05:09)
[2018-09-08] MEDS: ACETAMINOPHEN 500 MG TAB PO SCH ×3 (05:09→21:17)
--- NOTE | 2018-09-08 06:47 | NEUSURGPN ---
Date of Surgery: 09/04/18 Post Op Day: 4 Assessment/Plan: Assessment: 63 yo F s/p L4/5, L5/S1 TLIF. lumbar x-rays show stable hardware placement, labs stable Neg LLE US for DVT. neuro: stable, having some issues with syncope, no new occurrences in last 24 hours. Plan: leg pain likely post operative and will improve with time, US neg for DVT, Dr. Baldwin does not feel further imaging is required Appreciate medicine recs for orthostatic hypoTN. Continue Tramadol for Pain control, have decreased gabapentin d/t syncope. PT/OT- nobilize scd/martita/lovenox for dvt prophylaxis dispo planning please call with neuro changes Subjective: pain much better today, also no longer feeling light headed, no new issues with syncope. She states she did receive fluids overnight. pain is reasonably well controlled on tramadol. Objective: AxOx4 EOMI, PEARLA Speech clear and fluent no facial droop MAEx4 5/5 BUE, BLE Dressing/incision CDI Catheter Insertion Date: 09/04/18 - Physician Discussed Patient with Dr.: Baldwin Neurosurgery Physical Exam - Vitals, I&O, Labs I and O 09/07/18 09/08/18 09/09/18 05:59 05:59 05:59 Intake Total 1150 1800 Output Total 3400 500 Balance -2250 1300 Intake: Oral (ml) 650 1400 IV Infused (ml) 500 400 Ns 1,000 ml @ 125 mls/hr 400 IV CONT KALLIE Rx#: [id number] Ns 500 ml @ 1500 mls/hr 500 IV ONCE ONE Rx#: [id number] Output: Urine (ml) 3400 500 Bedside Commode 2500 500 Toilet 900 Other: Intake Quantity Yes Yes Sufficient Output Comment Bedside Commode XXLG Number of Voids Bedside Commode 2 1 Number of Stools Bedside Commode 0 0 Vital Signs Temp Pulse Resp BP Pulse Ox 37.5 C 69 16 134/85 H 97 09/08/18 04:00 09/08/18 04:00 09/08/18 04:00 09/08/18 04:00 09/08/18 04:00 Laboratory Results 09/07/18 09:32 09/07/18 09:32 ICD10 Worksheet Patient Problems: Problems Problem Status Onset Fusion of spine of lumbar region Acute
[2018-09-08] MEDS: FAMOTIDINE 20 MG TAB PO SCH ×2 (10:16→20:17)
[2018-09-08] MEDS: ENOXAPARIN 40 MG/0.4 ML SYR SC SCH (10:16)
[2018-09-08] MEDS: traMADol 50 MG TAB PO PRN ×2 (10:19→20:19)
[2018-09-08] MEDS: SENNOSIDES/DOCUSATE SODIUM TAB PO SCH ×2 (10:39→20:18)
--- NOTE | 2018-09-08 15:22 | CPEKG ---
Test Reason : OPEN Blood Pressure : / mmHG Vent. Rate : 082 BPM Atrial Rate : 083 BPM P-R Int : 154 ms QRS Dur : 086 ms QT Int : 467 ms P-R-T Axes : 050 036 000 degrees QTc Int : 546 ms Sinus rhythm Borderline T abnormalities, diffuse leads Prolonged QT interval Confirmed by Mirta Garcia ([id number]) on 09/08/2018 3:22:05 PM Referred By: Keagan Baldwin Confirmed By:Mirta Garcia
--- NOTE | 2018-09-08 18:18 | HOSPPROG ---
Hospitalist Progress Note Assessment/Plan: #Syncope: suspect medications, dehydration. Improved today. -recent negative nuclear stress test -decreased Tramadol dose -H/H stable -afebrile, blood cultures negative. Denies other infectious sxs. Surgical sites clean -AM cortisol low, check durga-stim test in morning #Other chronic medical issues; stable -Sjogren's -RLS -SHARI: CPAP #Heart murmur: chronic. Will check echo Please call if questions. Subjective: up today without dizziness Objective: Vital Signs Temp Pulse Resp BP Pulse Ox 37.8 C 96 14 82/51 L 92 09/08/18 16:00 09/08/18 16:00 09/08/18 16:00 09/08/18 16:00 09/08/18 16:00 Laboratory Results 09/07/18 09:32 09/07/18 09:32 09/07/18 09/08/18 09/09/18 05:59 05:59 05:59 Intake Total 1150 1800 Output Total 3400 500 500 Balance -2250 1300 -500 - Time Spent With Patient Time Spent with Patient: greater than 35 minutes Time Spent with Patient: Greater than 35 minutes spent on this patients care, greater than 50% of time spent counseling, educating, and coordinating care regarding the above mentioned plan. - Physical Exam Constitutional: no apparent distress Eyes: PERRL Ears, Nose, Mouth, Throat: moist mucous membranes Cardiovascular: systolic murmur Respiratory: no respiratory distress Gastrointestinal: normoactive bowel sounds, soft, non-tender abdomen Genitourinary: no bladder fullness Skin: warm Musculoskeletal: other (surgical incision dressed C/D/I) Neurologic: AAOx3, CN II-XII Intact Psychiatric: interacting appropriately ICD10 Worksheet Patient Problems: Problems Problem Status Onset Fusion of spine of lumbar region Acute
[2018-09-08] MEDS: METHOCARBAMOL 750 MG TAB PO PRN (20:20)
[2018-09-09] MEDS: GABAPENTIN 100 MG CAP PO SCH (05:23)
[2018-09-09] MEDS: ACETAMINOPHEN 500 MG TAB PO SCH (05:23)
[2018-09-09] MEDS: LEVOTHYROXINE 88 MCG TAB PO SCH (05:23)
[2018-09-09] MEDS ORDERED: COSYNTROPIN 0.25 MG/2 ML SYRINGE IVP ONE (06:00)
[2018-09-09 07:06] VITALS: BP 138/84
[2018-09-09] MEDS: FAMOTIDINE 20 MG TAB PO SCH (08:34)
[2018-09-09] MEDS: ENOXAPARIN 40 MG/0.4 ML SYR SC SCH (08:34)
[2018-09-09] MEDS: METHOCARBAMOL 750 MG TAB PO PRN (08:34)
[2018-09-09] MEDS: SENNOSIDES/DOCUSATE SODIUM TAB PO SCH (08:46)
--- NOTE | 2018-09-09 08:46 | NEUSURGPN ---
Assessment/Plan: Assessment: 63 yo F s/p L4/5, L5/S1 TLIF. lumbar x-rays show stable hardware placement. Neg LLE US for DVT. Medicine continues work up for syncope and hypoTN, cortisol this am neuro: stable, continues with hypotension after ambulation, but no new syncopal episodes. Plan: leg pain likely post operative and will improve with time, US neg for DVT, Dr. Baldwin does not feel further imaging is required Appreciate medicine recs for orthostatic hypoTN and syncope. Continue Tramadol for Pain control, have decreased gabapentin d/t syncope. PT/OT- mobilize scd/martita/lovenox for dvt prophylaxis dispo planning- plan for home once medically cleared please call with neuro changes Subjective: pain improved. no new complaints, still with some episodes with low BP after ambulation, hasn't been up today. Objective: AxOx4 EOMI, PEARLA Speech clear and fluent no facial droop MAEx4 5/5 BUE, BLE Dressing/incision CDI up with walker Catheter Insertion Date: 09/04/18 - Physician Discussed Patient with Dr.: Baldwin Neurosurgery Physical Exam - Vitals, I&O, Labs I and O 09/08/18 09/09/18 09/10/18 05:59 05:59 05:59 Intake Total 1800 1600 Output Total 500 500 Balance 1300 1100 Intake: Oral (ml) 1400 1600 IV Infused (ml) 400 Ns 1,000 ml @ 125 mls/hr 400 IV CONT KALLIE Rx#: [id number] Output: Urine (ml) 500 500 Bedside Commode 500 500 Other: Intake Quantity Yes Sufficient Output Comment Bedside Commode XXLG Number of Voids Bedside Commode 1 1 Toilet 1 Number of Stools Bedside Commode 0 Toilet 1 Vital Signs Temp Pulse Resp BP Pulse Ox 37.4 C 67 14 138/84 H 93 09/09/18 07:06 09/09/18 07:06 09/09/18 07:06 09/09/18 07:06 09/09/18 07:06 Laboratory Results 09/07/18 09:32 09/07/18 09:32 ICD10 Worksheet Patient Problems: Problems Problem Status Onset Fusion of spine of lumbar region Acute
--- NOTE | 2018-09-09 14:30 | ASMTLACE ---
LACE Length of stay for Answers: 4-6 days current admission Acuity / Level of Answers: Yes Care: Did the patient have an inpatient admission? Comorbidities - select Answers: Congestive heart failure all that apply Coronary Artery Disease Opioid dependence / Chronic pain Other Notes: Hyopothyroid # of Emergency department Answers: 0 visits in the last 6 months Score: 16 Date Signed: 09/09/2018 02:30 PM Electronically Signed By:Paris Morris RN
--- NOTE | 2018-09-09 14:41 | ASMTDCNOTE ---
Case Management Discharge Discharge Order Complete? Answers: Yes Patient to Obtain Answers: Independently Medications Transportation Arranged Answers: Family/Friends Faxed Final Orders Answers: Yes Family Notified Answers: Yes Discharge Comments Notes: Medically cleared for dishcarge to home with [facility] today. Alerted [facility] about discharge. CM available should other needs arise. Date Signed: 09/09/2018 02:41 PM Electronically Signed By:Paris Morris RN
--- NOTE | 2018-09-09 15:29 | HOSPPROG ---
Hospitalist Progress Note Assessment/Plan: #Syncope: normotensive today and no symptoms with ambulating suspect medications, dehydration. Improved today. -recent negative nuclear stress test -decreased Tramadol dose -H/H stable -afebrile, blood cultures negative. Denies other infectious sxs. Surgical sites clean -normal durga stim test #Other chronic medical issues; stable -Sjogren's -RLS -SHARI: CPAP #Heart murmur: chronic. Outpatient echo Please call if questions. Subjective: no lightheadedness with walking, standing Objective: Vital Signs Temp Pulse Resp BP Pulse Ox 37.4 C 67 14 138/84 H 93 09/09/18 07:06 09/09/18 07:06 09/09/18 07:06 09/09/18 07:06 09/09/18 07:06 Laboratory Results 09/07/18 09:32 09/07/18 09:32 09/08/18 09/09/18 09/10/18 05:59 05:59 05:59 Intake Total 1800 1600 Output Total 500 500 Balance 1300 1100 - Time Spent With Patient Time Spent with Patient: greater than 35 minutes Time Spent with Patient: Greater than 35 minutes spent on this patients care, greater than 50% of time spent counseling, educating, and coordinating care regarding the above mentioned plan. - Physical Exam Constitutional: no apparent distress, other (appears brighter today) Eyes: PERRL Ears, Nose, Mouth, Throat: moist mucous membranes Cardiovascular: regular rate and rhythym, systolic murmur Respiratory: no respiratory distress Gastrointestinal: normoactive bowel sounds Genitourinary: no bladder fullness Skin: warm Neurologic: AAOx3, CN II-XII Intact ICD10 Worksheet Patient Problems: Problems Problem Status Onset Fusion of spine of lumbar region Acute
== END 2018-09-09 14:25 | disposition home health service (06) | DRG 455 ==
LOC: F3N 05:46
PROVIDERS: ADMIT Neurological Surgery; ATTEND Neurological Surgery
PROC: 0SG0071 Fusion of Lumbar Vertebral Joint with Autologous Tissue Substitute, Posterior Approach, Posterior Column, Open Approach (ICD-10-PCS; principal; 2018-09-04 07:15)
PROC: 0SG30AJ Fusion of Lumbosacral Joint with Interbody Fusion Device, Posterior Approach, Anterior Column, Open Approach (ICD-10-PCS; principal; 2018-09-04 07:15)
PROC: 01NB0ZZ Release Lumbar Nerve, Open Approach (ICD-10-PCS; principal; 2018-09-04 07:15)
PROC: 4A1004G Monitoring of Central Nervous Electrical Activity, Intraoperative, Open Approach (ICD-10-PCS; principal; 2018-09-04 07:15)
PROC: 0SG3071 Fusion of Lumbosacral Joint with Autologous Tissue Substitute, Posterior Approach, Posterior Column, Open Approach (ICD-10-PCS; principal; 2018-09-04 07:15)
PROC: 8E0WXBZ Computer Assisted Procedure of Trunk Region (ICD-10-PCS; principal; 2018-09-04 07:15)
PROC: 0SG00AJ Fusion of Lumbar Vertebral Joint with Interbody Fusion Device, Posterior Approach, Anterior Column, Open Approach (ICD-10-PCS; principal; 2018-09-04 07:15)
DX: M47.27 Other spondylosis with radiculopathy, lumbosacral region (principal); R55 Syncope and collapse; M35.00 Sjogren syndrome, unspecified; E03.9 Hypothyroidism, unspecified; L40.52 Psoriatic arthritis mutilans; G47.33 Obstructive sleep apnea (adult) (pediatric); G25.81 Restless legs syndrome
CPT/HCPCS: 97116-GP; 97161-GP; 97165-GO; 97530-GO; 97530-GP; 97535-GO; C1713; J0690; J0834; J1100; J1170; J1650; J2001; J2250; J2270; J2274; J2370; J2405; J2704

== ENCOUNTER → 2018-11-05 | Outpatient (CLI) | payer OTHER | LOC: BMCIMAGING 07:56 ==